=== PATIENT | female | born 2000 | race Caucasian/White ===

== ENCOUNTER 2020-12-21 21:46 | Emergency (ER) | payer OTHER ==
[2020-12-21 21:51] VITALS: BP 105/66; PULSE 96; TEMP 98.1; BMI 34.7
[2020-12-21] MEDS ORDERED: LIDOCAINE PATCH REMOVAL MC SCH (22:00)
[2020-12-21] MEDS ORDERED: LIDOCAINE 5% TOPICAL PATCH TP ONE (23:02)
[2020-12-22] MEDS ORDERED: LIDOCAINE 5% TOPICAL PATCH ONE ×2 (00:02→00:05)
== END 2020-12-22 01:24 | disposition home or self-care (01) ==
LOC: JER 21:46
DX: R51.9 Headache, unspecified (principal); M54.2 Cervicalgia
CPT/HCPCS: 70450-TC; 71046-TC-FY; 72125-TC; 93005; 93010; 99285-25